=== PATIENT | male | born 1985 | race Caucasian/White ===

== ENCOUNTER 2023-01-10 12:08 | Emergency (ER) | payer OTHER, BC ==
[2023-01-10] MEDS ORDERED: Lidocaine 1% with EPINEPHrine 1:100,000 10 ML MDV INJECT ONE (12:23)
[2023-01-10] MEDS ORDERED: diphenhydrAMINE 25 MG/10 ML Cup PO ONE (12:24)
[2023-01-10] MEDS ORDERED: Diphtheria,Pertussis(Acell),Tetanus Vaccine 0.5 ML Syringe IM ONE (12:25)
[2023-01-10] MEDS ORDERED: diphenhydrAMINE 25 MG Cap PO ONE (12:31)
[2023-01-10] MEDS: diphenhydrAMINE 25 MG Cap ONE ×2 (12:32→12:35)
[2023-01-10] MEDS ORDERED: Bacitracin/Neomycin/Polymyxin B Oint 0.9 GM U/D Packet TOP ONE (13:32)
== END 2023-01-10 13:55 | disposition home or self-care (01) ==
LOC: KA.ED 12:08
DX: S61.412A Laceration without foreign body of left hand, initial encounter (principal); W26.9XXA Contact with unspecified sharp object(s), initial encounter
CPT/HCPCS: 12001; 90471; 90715; 99282-25; 99283; A9270-GY; J3490